=== PATIENT | female | born 1995 | race Caucasian/White ===

== ENCOUNTER 2023-10-19 14:15 | Emergency (ER) | payer OTHER ==
[2023-10-19 14:20] VITALS: BP 139/84; PULSE 115; RESP 18; TEMP 98.3; BMI 31.8
== END 2023-10-19 15:38 | disposition home or self-care (01) ==
LOC: JERFT 14:15
DX: O26.892 Other specified pregnancy related conditions, second trimester (principal); R09.89 Other specified symptoms and signs involving the circulatory and respiratory systems; R07.0 Pain in throat; O98.512 Other viral diseases complicating pregnancy, second trimester; U07.1 COVID-19; O99.512 Diseases of the respiratory system complicating pregnancy, second trimester; J00 Acute nasopharyngitis [common cold]; Z3A.15 15 weeks gestation of pregnancy
CPT/HCPCS: 0241U-QW; 99283-25

== ENCOUNTER 2024-01-27 23:01 | Observation (INO) | payer OTHER ==
[2024-01-28 01:54] LABS: EPI CELLS 20 /uL (0-25.1); HYALINE CASTS 5 /uL (0-3.1); URINE APPEARANCE CLOUDY; URINE BACTERIA 3892 /uL (0-1359); URINE BILIRUBIN NEGATIVE (NEGATIVE); URINE COLOR YELLOW; URINE GLUCOSE (UA) NEGATIVE (NEGATIVE); URINE KETONE NEGATIVE (NEGATIVE); URINE LEUK ESTERASE NEGATIVE (NEGATIVE); URINE NITRITE NEGATIVE (NEGATIVE); URINE PROTEIN 1+ (NEGATIVE); URINE UROBILINOGEN 0.2 mg/dL (0.2-1.0)
[2024-01-28 04:43] LABS: BASO % 0.1 % (0-2.0); EOS % 0.1 % (0-4.5); HEMATOCRIT 35.3 % (32.4-45.2); HEMOGLOBIN 11.7 GM/dL (10.7-15.3); LYMPH % 12.6 % (8-40); MCH 26.5 pg (25.7-33.7); MCHC 33.2 g/dl (32.0-36.0); MEAN CELL VOLUME 79.9 fl (80-96); MONO % 2.8 % (3.8-10.2); NEUT % 84.4 % (42.8-82.8); PLATELET COUNT 259 10^3/uL (134-434); RBC 4.42 M/mm3 (3.60-5.2); RDW 14.1 % (11.6-15.6); WHITE BLOOD COUNT 15.8 K/mm3 (4.0-10.0)
[2024-01-28] MEDS ORDERED: ONDANSETRON 4 MG/2 ML VIAL ONE (04:51)
[2024-01-28] MEDS: SODIUM CHLORIDE 0.9% 500 ML INFUS.BAG IV ONE ×2 (04:54→05:41)
[2024-01-28] MEDS: ONDANSETRON 4 MG/2 ML VIAL IVPUSH ONE (04:55)
[2024-01-28 05:03] LABS: CALCIUM 9.2 mg/dL (8.5-10.1)
[2024-01-28 05:04] LABS: BLOOD UREA NITROGEN 7.6 mg/dL (7-18)
[2024-01-28 05:07] LABS: CREATININE 0.5 mg/dL (0.55-1.3)
[2024-01-28 05:08] LABS: BILIRUBIN,TOTAL 0.3 mg/dL (0.2-1); TOT PROT 6.9 g/dl (6.4-8.2)
[2024-01-28] MEDS ORDERED: CEFTRIAXONE 1 GM/50 ML BAG ONE (05:42)
[2024-01-28] MEDS: CEFTRIAXONE 1,000 MG in DEXTROSE 5%-WATER - 50 ML IVPB ONE (05:44)
[2024-01-28] MEDS ORDERED: ELECTROLYTE-148 SOLN 500 ML IV ONE (08:09)
[2024-01-28] MEDS: ELECTROLYTE-148 SOLN 500 ML IV ONE ×2 (09:30→10:00)
[2024-01-28 10:04] VITALS: RESP 18; BMI 34.7
[2024-01-28 11:06] LABS: POTASSIUM 3.7 mmol/L (3.5-5.1)
[2024-01-28 11:08] LABS: CALCIUM 9.3 mg/dL (8.5-10.1)
[2024-01-28 11:09] LABS: BLOOD UREA NITROGEN 5.5 mg/dL (7-18)
[2024-01-28 11:10] LABS: EOS % 0.1 % (0-4.5); HEMATOCRIT 35.2 % (32.4-45.2); HEMOGLOBIN 11.4 GM/dL (10.7-15.3); LYMPH % 11.9 % (8-40); MCH 26.2 pg (25.7-33.7); MCHC 32.4 g/dl (32.0-36.0); MEAN CELL VOLUME 80.8 fl (80-96); MEAN PLT VOLUME 8.3 fl (7.5-11.1); MONO % 4.2 % (3.8-10.2); NEUT % 83.8 % (42.8-82.8); PLATELET COUNT 243 10^3/uL (134-434); RBC 4.35 M/mm3 (3.60-5.2); WHITE BLOOD COUNT 15.1 K/mm3 (4.0-10.0)
[2024-01-28 11:12] LABS: CREATININE 0.4 mg/dL (0.55-1.3)
[2024-01-28 11:55] LABS: INR 1.12 (0.83-1.09)
[2024-01-28 11:58] LABS: ACTIVATED PTT 26.2 SECONDS (25.2-36.5)
[2024-01-28 12:02] LABS: HIV INTERPRETATION NEGATIVE (NEGATIVE)
[2024-01-28 12:52] VITALS: BP 105/65; PULSE 71; TEMP 98.2
== END 2024-01-28 16:02 | disposition home or self-care (01) ==
LOC: JER 23:01 → JLDR 01-28 08:10
PROVIDERS: ADMIT Obstetrics & Gynecology; ATTEND Obstetrics & Gynecology
PROC: 3E03329 Introduction of Other Anti-infective into Peripheral Vein, Percutaneous Approach (ICD-10-PCS; principal; 2024-01-28)
PROC: 3E033GC Introduction of Other Therapeutic Substance into Peripheral Vein, Percutaneous Approach (ICD-10-PCS; 2024-01-28)
PROC: 3E0337Z Introduction of Electrolytic and Water Balance Substance into Peripheral Vein, Percutaneous Approach (ICD-10-PCS; 2024-01-28)
DX: O23.43 Unspecified infection of urinary tract in pregnancy, third trimester (principal); N39.0 Urinary tract infection, site not specified; Z3A.30 30 weeks gestation of pregnancy; O99.213 Obesity complicating pregnancy, third trimester; R11.2 Nausea with vomiting, unspecified
CPT/HCPCS: 0241U-QW; 36415; 80048; 80053; 81003; 82962; 85025; 85610; 85730; 86780; 86850; 86900; 86901; 87086; 87389; 96365; 96366; 96367; 96375; 99285-25; G0378

== ENCOUNTER 2024-03-15 04:50 | Inpatient (IN) | payer OTHER ==
[2024-03-15] MEDS ORDERED: LABETALOL HCL 5 MG/1 ML (100MG/20 ML VIAL) IVPUSH PRN ×2 (05:25)
[2024-03-15] MEDS ORDERED: hydrALAZINE HCL 20 MG/ML VIAL IVPUSH PRN (05:25)
[2024-03-15] MEDS ORDERED: LABETALOL HCL 5 MG/1 ML (100MG/20 ML VIAL) IVPUSH ONE (05:25)
[2024-03-15] MEDS: ELECTROLYTE-148 SOLN 1,000 ML IV SCH (05:55)
[2024-03-15] MEDS ORDERED: AMPICILLIN SODIUM 2 GM VIAL ONE (06:01)
[2024-03-15] MEDS: AMPICILLIN - 2 GM in SODIUM CHLORIDE 100 ML IVPB ONE (06:05)
[2024-03-15] MEDS ORDERED: OXYTOCIN 30 UNITS in 0.9% NS 30 UNIT/500 ML INFUS.BAG IVPB ONE (06:16)
[2024-03-15] MEDS: OXYTOCIN 30 UNITS in 0.9% NS 30 UNIT/500 ML INFUS.BAG IVPB SCH (06:25)
[2024-03-15 06:33] LABS: BASO % 0.1 % (0-2.0); EOS % 0.1 % (0-4.5); HEMATOCRIT 36.7 % (32.4-45.2); HEMOGLOBIN 12.1 GM/dL (10.7-15.3); LYMPH % 9.4 % (8-40); MCH 26.2 pg (25.7-33.7); MCHC 32.9 g/dl (32.0-36.0); MEAN CELL VOLUME 79.7 fl (80-96); MEAN PLT VOLUME 9.1 fl (7.5-11.1); NEUT % 86.4 % (42.8-82.8); PLATELET COUNT 214 10^3/uL (134-434); RDW 14.8 % (11.6-15.6); WHITE BLOOD COUNT 15.8 K/mm3 (4.0-10.0)
[2024-03-15 06:35] VITALS: BMI 38.0
[2024-03-15 06:44] LABS: PROTHROMBIN TIME (PATIENT) 11.6 SEC (9.7-13.0)
[2024-03-15 06:56] LABS: POTASSIUM 3.9 mmol/L (3.5-5.1)
[2024-03-15 06:57] LABS: CALCIUM 8.7 mg/dL (8.5-10.1)
[2024-03-15 07:01] LABS: CREATININE 0.5 mg/dL (0.55-1.3)
[2024-03-15 07:32] LABS: GAMMA GLUTAMYL TRANSPEPTIDASE 12 U/L (5-85)
[2024-03-15 07:34] LABS: SGOT/AST 20 U/L (15-37); URIC ACID 5.5 mg/dL (2.6-7.2)
[2024-03-15] MEDS ORDERED: BUTORPHANOL TARTRATE 2 MG/ML VIAL ONE (08:10)
[2024-03-15] MEDS ORDERED: PROMETHAZINE HCL 25 MG/1 ML VIAL ONE (08:11)
[2024-03-15] MEDS: PROMETHAZINE HCL 25 MG/1 ML VIAL IVPB ONE (08:20)
[2024-03-15] MEDS: BUTORPHANOL TARTRATE 1 MG/ML VIAL IVPB ONE (08:21)
[2024-03-15] MEDS ORDERED: LABETALOL HCL 200 MG TABLET (FP) ONE (08:51)
[2024-03-15] MEDS: LABETALOL HCL 200 MG TABLET (FP) PO ONE (08:56)
[2024-03-15] MEDS ORDERED: AMPICILLIN SODIUM 1 GM VIAL ONE ×4 (09:07→21:32)
[2024-03-15] MEDS ORDERED: SODIUM CHLORIDE 100 ML IVPB ONE ×3 (09:07→17:04)
[2024-03-15] MEDS: AMPICILLIN - 1 GM in SODIUM CHLORIDE 100 ML IVPB SCH (09:21)
[2024-03-15 12:06] LABS: HIV INTERPRETATION NEGATIVE (NEGATIVE)
[2024-03-15] MEDS ORDERED: FENTANYL/BUPIVACAINE/NS/PF - PCEA - 50 ML DISP.SYRIN EP ONE ×2 (16:13→21:14)
[2024-03-15] MEDS: FENTANYL/BUPIVACAINE/NS/PF - PCEA - 50 ML DISP.SYRIN EP SCH (21:15)
[2024-03-15] MEDS ORDERED: NALOXONE HCL 0.4 MG/ML VIAL IVPUSH PRN (21:51)
[2024-03-16] MEDS ORDERED: OXYTOCIN 20 UNITS in 0.9% NS 20 UNIT/1,000 ML INFUS.BAG IV ONE (00:47)
[2024-03-16] MEDS ORDERED: LIDOCAINE HCL 1% PRESERVATIVE FREE - 30ML VIAL ONE (00:47)
[2024-03-16] MEDS ORDERED: AMPICILLIN SODIUM 1 GM VIAL ONE (00:56)
[2024-03-16] MEDS ORDERED: FENTANYL/BUPIVACAINE/NS/PF - PCEA - 50 ML DISP.SYRIN EP ONE (01:01)
[2024-03-16] MEDS: OXYTOCIN 20 UNITS in 0.9% NS 20 UNIT/1,000 ML INFUS.BAG IV SCH (04:20)
[2024-03-16] MEDS ORDERED: BISACODYL 10 MG SUPP.RECT RC PRN (05:00)
[2024-03-16] MEDS ORDERED: WITCH HAZEL 50% (TUCKS) 40 PAD/JAR PAD TP PRN (05:00)
[2024-03-16] MEDS ORDERED: IBUPROFEN 600 MG TABLET (FP) PO PRN (05:00)
[2024-03-16] MEDS ORDERED: BENZOCAINE 20% 57 GM BOTTLE TP PRN (05:00)
[2024-03-16] MEDS ORDERED: BENZOCAINE 28 GM HEMORRHOIDAL OINTMENT TP PRN (05:00)
[2024-03-16 05:19] LABS: CORD BASE EXCESS -10.5 mmol/L (0-2); CORD BASE EXCESS -6.9 mmol/L (0-2); CORD HCO3 18.1 mmHg (20-29); CORD HCO3 19.4 mmHg (20-29); CORD PCO2 35.6 mmHg (30-78); CORD PCO2 57.9 mmHg (30-78); CORD pH 7.143 (7.14-7.44); CORD pH 7.325 (7.14-7.44)
[2024-03-16] MEDS ORDERED: ACETAMINOPHEN 325 MG TABLET (FP) PO PRN (06:00)
[2024-03-16] MEDS: METHYLERGONOVINE MALEATE 0.2 MG/1 ML AMP IM PRN (06:04)
[2024-03-16 08:52] VITALS: RESP 18
[2024-03-17] MEDS ORDERED: SENNOSIDES/DOCUSATE COMBO (SENNA PLUS) TABLET (UD) PO PRN (05:00)
[2024-03-18 08:40] LABS: BASO % 0.3 % (0-2.0); EOS % 1.3 % (0-4.5); HEMATOCRIT 30.4 % (32.4-45.2); HEMOGLOBIN 9.9 GM/dL (10.7-15.3); LYMPH % 14.9 % (8-40); MCH 26.2 pg (25.7-33.7); MCHC 32.7 g/dl (32.0-36.0); MEAN CELL VOLUME 79.9 fl (80-96); MEAN PLT VOLUME 8.5 fl (7.5-11.1); MONO % 9.5 % (3.8-10.2); PLATELET COUNT 214 10^3/uL (134-434); RDW 15.7 % (11.6-15.6); WHITE BLOOD COUNT 7.6 K/mm3 (4.0-10.0)
[2024-03-18 12:14] VITALS: BP 117/68; PULSE 94; TEMP 98.2
== END 2024-03-18 13:05 | disposition home or self-care (01) | DRG 807 ==
LOC: JDEL 04:50 → JLDR 05:00 → J3W 03-16 08:20
PROVIDERS: ADMIT Obstetrics & Gynecology; ATTEND Obstetrics & Gynecology
PROC: 10E0XZZ Delivery of Products of Conception, External Approach (ICD-10-PCS; principal; 2024-03-16)
PROC: 0HQ9XZZ Repair Perineum Skin, External Approach (ICD-10-PCS; 2024-03-16)
DX: O42.913 Preterm premature rupture of membranes, unspecified as to length of time between rupture and onset of labor, third trimester (principal); Z37.0 Single live birth; O70.0 First degree perineal laceration during delivery; Z3A.36 36 weeks gestation of pregnancy
CPT/HCPCS: 36415; 36600; 80048; 82803; 82977; 83010; 84450; 84460; 84550; 85025; 85045; 85610; 85730; 86780; 86850; 86900; 86901; 87389